=== PATIENT | male | born 1950 | race Caucasian/White ===

== ENCOUNTER 2016-05-16 17:04 | Inpatient (IN) | payer MEDICARE, OTHER ==
[~2016-05-16] VITALS: Ht 170.2 cm; Wt 65.8 kg
[~2016-05-16 17:04] MED LIST: ALBU8.5H4 IH; BUTA1CAP17 PO; DIAZ10TA4 PO; OXYC30TA2 PO; SULF1TAB48 PO; SUMA100T PO; TIZA4TAB4 PO
[2016-05-16] MEDS ORDERED: ALBUTEROL FS 2.5 MG/3 ML VIAL.NEB ONE (17:17)
[2016-05-16] MEDS ORDERED: IPRATROPIUM NEB FS 0.5 MG/2.5 ML AMPUL.NEB ONE (17:17)
[2016-05-16] MEDS ORDERED: Magnesium 1GM/D5W 100ML PREMIX 200 ML IV ONE (17:18)
[2016-05-16] MEDS ORDERED: DEXAMETHASONE SOD PHOSPHATE 10 MG/ML VIAL IV ONE (17:30)
[2016-05-16] MEDS ORDERED: IV NS 0.9% 500 ML IV ONE ×2 (17:30→17:32)
[2016-05-16] MEDS ORDERED: ALBUTEROL FS 2.5 MG/3 ML VIAL.NEB CONTNEB ONE (17:30)
[2016-05-16] MEDS ORDERED: IPRATROPIUM NEB FS 0.5 MG/2.5 ML AMPUL.NEB NEB ONE (17:30)
[2016-05-16] MEDS ORDERED: DEXAMETHASONE SOD PHOSPHATE 10 MG/ML VIAL ONE (17:32)
[2016-05-16] MEDS ORDERED: IV SET PRIMARY 1 EA INFUS.SET MC ONE ×2 (17:32→17:47)
[2016-05-16 17:38] LABS: BASOPHILS % (AUTO) 0.1 % (0.0-2.0); DIFF TOTAL % 100 %; HEMATOCRIT 46 % (39-51); HEMOGLOBIN 15.7 g/dL (13.5-17.5); LYMPHOCYTES # (AUTO) 0.7 /CMM (0.8-4.8); LYMPHOCYTES % (AUTO) 6.6 % (20.0-44.0); MEAN CORPUSCULAR HEMOGLOBIN 31 PG (26.0-33.0); MEAN CORPUSCULAR HGB CONC 34 g/dl (31.0-36.0); MEAN CORPUSCULAR VOLUME 89 fL (80-96); MONOCYTES # (AUTO) 0.7 /CMM (0.1-1.30); MONOCYTES % (AUTO) 6.2 % (2.0-12.0); NEUTROPHILS # (AUTO) 9.6 /CMM (1.8-8.9); NEUTROPHILS % (AUTO) 87.1 % (43.0-81.0); PLATELET COUNT (AUTO) 250 /CMM (150-450); RED BLOOD CELL COUNT(AUTO) 5.16 MIL/uL (4.5-6.0)
[2016-05-16] MEDS ORDERED: Magnesium 1GM/D5W 100ML PREMIX 100 ML IV ONE ×2 (17:48→19:51)
[2016-05-16 17:53] LABS: ANION GAP 13 (5-14); CALCIUM, SERUM 9.6 mg/dL (8.5-10.1); CARBON DIOXIDE 29 mmol/L (21-32); CHLORIDE 97 mmol/L (98-107); CREATININE 1.1 mg/dL (0.6-1.3); GFR 67 mL/min (>60); GLUCOSE 231 mg/dL (74-106); POTASSIUM 4.1 mmol/L (3.5-5.1); SODIUM SERUM 135 mmol/L (136-145); UREA NITROGEN, BLOOD 16 mg/dL (7-18)
[2016-05-16 17:58] LABS: TROPONIN I < 0.017 ng/mL (0.00-0.056)
[2016-05-16 18:06] LABS: ALANINE AMINOTRANSFERASE 59 U/L (12-78); ALBUMIN 4.2 g/dL (3.4-5.0); ASPARTATE AMINOTRANSFERASE 38 U/L (15-37); BILIRUBIN,DIRECT 0.1 mg/dL (0.0-0.2); BILIRUBIN,TOTAL 0.3 mg/dL (0.2-1.0); INDIRECT BILIRUBIN 0.2 mg/dL (0.0-1.1); LACTIC ACID 2.1 mmol/L (0.4-2.0); TOTAL PROTEIN, SERUM 8.1 g/dL (6.4-8.2)
[2016-05-16 18:31] LABS: *LACTIC ACID REFLEX FLAG YES
[2016-05-16 19:29] LABS: KETONES,URINE 1+ (NEGATIVE); LEUKOCYTE ESTERASE ,URINE NEGATIVE (NEGATIVE)
[2016-05-16] MEDS ORDERED: ALBUTEROL FS 2.5 MG/0.5 ML VIAL.NEB ONE (19:48)
[2016-05-16 19:49] LABS: ADD UA MICROSCOPIC YES
[2016-05-16] MEDS ORDERED: IV SET PRIMARY PUMP SET 1 EA INFUS.SET MC ONE (19:50)
[2016-05-16 19:52] LABS: ADD URINE CULTURE NO; RBC,URINE 0-2 /HPF (0-2); WBC,URINE 0-2 /HPF (0-3)
[2016-05-16] MEDS ORDERED: ALBUTEROL FS 2.5 MG/0.5 ML VIAL.NEB NEB ONE ×2 (20:00→22:30)
[2016-05-16] MEDS ORDERED: ALBUTEROL FS 2.5 MG/3 ML VIAL.NEB CONTNEB PRN (22:30)
[2016-05-16] MEDS: ALBUTEROL FS 2.5 MG/0.5 ML VIAL.NEB NEB ONE (22:30)
[2016-05-16] MEDS ORDERED: SUMATRIPTAN SUCCINATE 100 MG TABLET PO PRN (22:30)
[2016-05-16] MEDS ORDERED: IV NS 0.9% 1,000 ML IV PRN (22:36)
[2016-05-16 23:00] VITALS: BP 148/87
[2016-05-16] MEDS ORDERED: MAG HYDROX/AL HYDROX/SIMETH 30 ML UDC PO PRN ×2 (23:00→23:15)
[2016-05-16] MEDS ORDERED: Z GUARD REMEDY 2 OZ OINT TP PRN ×2 (23:00→23:15)
[2016-05-16] MEDS ORDERED: ACETAMINOPHEN 325 MG TABLET PO PRN ×2 (23:00→23:15)
[2016-05-16] MEDS ORDERED: MAGNESIUM HYDROXIDE 30 ML UDC PO PRN ×2 (23:00→23:15)
[2016-05-16] MEDS ORDERED: ONDANSETRON HCL/PF 4 MG/2 ML VIAL IVP PRN ×2 (23:00→23:15)
[2016-05-16] MEDS ORDERED: ZOLPIDEM TARTRATE 5 MG TABLET PO PRN ×2 (23:00→23:15)
[2016-05-16] MEDS ORDERED: HYDROMORPHONE INJ 2 MG/ML DISP.SYRIN IV PRN ×2 (23:00→23:15)
[2016-05-16] MEDS ORDERED: HYDROCODONE/APAP 5/325MG 1 EACH TABLET PO PRN (23:00)
[2016-05-16] MEDS ORDERED: ENOXAPARIN SODIUM 40 MG/0.4 ML DISP.SYRIN SQ SCH ×2 (23:00→23:15)
[2016-05-16] MEDS ORDERED: methylPREDNISolone SOD SUCC 125 MG/2ML VIAL IV SCH (23:00)
[2016-05-16 23:30] VITALS: BP 148/87
[2016-05-16] MEDS ORDERED: ENOXAPARIN SODIUM 40 MG/0.4 ML DISP.SYRIN SQ ONE (23:43)
[2016-05-16] MEDS ORDERED: DIAZEPAM 5 MG TABLET ONE (23:43)
[2016-05-17] MEDS ORDERED: DIAZEPAM 10 MG TABLET PO SCH ×2
[2016-05-17] MEDS ORDERED: IV SET PRIMARY PUMP SET 1 EA INFUS.SET MC ONE (00:29)
[2016-05-17] MEDS ORDERED: IV 1/2NS 1000 ML 1,000 ML IV ONE (00:29)
[2016-05-17] MEDS ORDERED: ALBUTEROL FS 2.5 MG/0.5 ML VIAL.NEB ONE (00:39)
[2016-05-17] MEDS: IV NS 0.9% 1,000 ML IV PRN (00:41)
[2016-05-17] MEDS: ALBUTEROL FS 2.5 MG/0.5 ML VIAL.NEB NEB ONE (00:43)
[2016-05-17] MEDS ORDERED: PANTOPRAZOLE 40 MG TABLET.DR PO SCH (07:30)
[2016-05-17 08:00] VITALS: BP 136/83
[2016-05-17] MEDS ORDERED: TIZANIDINE HCL 4 MG TABLET PO SCH (09:00)
[2016-05-17] MEDS: methylPREDNISolone SOD SUCC 125 MG/2ML VIAL IV SCH ×3 (13:00→21:19)
[2016-05-17] MEDS: TIZANIDINE HCL 4 MG TABLET PO SCH ×2 (13:00→17:00)
[2016-05-17] MEDS: ALBUTEROL FS 2.5 MG/3 ML VIAL.NEB NEB PRN ×3 (14:00→21:38)
[2016-05-17] MEDS: oxyCODONE IR immediate release 5 MG CAPSULE PO PRN ×2 (15:36→21:19)
[2016-05-17] MEDS: PANTOPRAZOLE 40 MG TABLET.DR PO SCH (15:52)
[2016-05-17] MEDS: ACETYLCYSTEINE 10% SOLN 400 MG/4 ML VIAL NEB SCH (16:35)
[2016-05-17 17:50] LABS: BASOPHILS # (AUTO) 0.1 /CMM (0.0-0.2); BASOPHILS % (AUTO) 0.5 % (0.0-2.0); DIFF TOTAL % 100 %; EOSINOPHILS % (AUTO) 0.1 % (0.0-6.0); HEMATOCRIT 46 % (39-51); HEMOGLOBIN 15.3 g/dL (13.5-17.5); LYMPHOCYTES # (AUTO) 0.7 /CMM (0.8-4.8); LYMPHOCYTES % (AUTO) 4.5 % (20.0-44.0); MEAN CORPUSCULAR HEMOGLOBIN 30 PG (26.0-33.0); MEAN CORPUSCULAR HGB CONC 33 g/dl (31.0-36.0); MEAN CORPUSCULAR VOLUME 90 fL (80-96); MONOCYTES # (AUTO) 0.7 /CMM (0.1-1.30); MONOCYTES % (AUTO) 4.3 % (2.0-12.0); NEUTROPHILS # (AUTO) 13.8 /CMM (1.8-8.9); NEUTROPHILS % (AUTO) 90.6 % (43.0-81.0); PLATELET COUNT (AUTO) 225 /CMM (150-450); RED BLOOD CELL COUNT(AUTO) 5.12 MIL/uL (4.5-6.0); WHITE BLOOD COUNT (AUTO) 15.2 K/uL (4.3-11.0)
[2016-05-17 18:10] LABS: CALCIUM, SERUM 9.1 mg/dL (8.5-10.1); CREATININE 0.9 mg/dL (0.6-1.3)
[2016-05-17] MEDS: HYDROCODONE/APAP 5/325MG 1 EACH TABLET PO PRN (18:31)
[2016-05-17] MEDS: ENOXAPARIN SODIUM 40 MG/0.4 ML DISP.SYRIN SQ SCH (21:20)
[2016-05-17 22:00] VITALS: BP 112/79
[2016-05-17] MEDS: DIAZEPAM 10 MG TABLET PO PRN (22:00)
[2016-05-18] MEDS ORDERED: SUMATRIPTAN SUCCINATE 100 MG TABLET ONE (00:02)
[2016-05-18] MEDS: SUMATRIPTAN SUCCINATE 100 MG TABLET PO PRN (00:44)
[2016-05-18] MEDS: oxyCODONE IR immediate release 5 MG CAPSULE PO PRN ×3 (03:53→20:32)
[2016-05-18] MEDS: ALBUTEROL FS 2.5 MG/3 ML VIAL.NEB NEB PRN (04:17)
[2016-05-18] MEDS: DIAZEPAM 10 MG TABLET PO PRN ×3 (04:17→22:32)
[2016-05-18] MEDS: HYDROCODONE/APAP 5/325MG 1 EACH TABLET PO PRN ×4 (06:53→23:38)
[2016-05-18 07:10] LABS: BASOPHILS # (AUTO) 0.1 /CMM (0.0-0.2); BASOPHILS % (AUTO) 1.5 % (0.0-2.0); DIFF TOTAL % 100 %; HEMATOCRIT 44 % (39-51); HEMOGLOBIN 14.8 g/dL (13.5-17.5); LYMPHOCYTES # (AUTO) 0.9 /CMM (0.8-4.8); MEAN CORPUSCULAR HEMOGLOBIN 31 PG (26.0-33.0); MEAN CORPUSCULAR HGB CONC 34 g/dl (31.0-36.0); MEAN CORPUSCULAR VOLUME 91 fL (80-96); MONOCYTES # (AUTO) 1.1 /CMM (0.1-1.30); MONOCYTES % (AUTO) 10.6 % (2.0-12.0); NEUTROPHILS # (AUTO) 8.1 /CMM (1.8-8.9); NEUTROPHILS % (AUTO) 78.9 % (43.0-81.0); PLATELET COUNT (AUTO) 213 /CMM (150-450); RED BLOOD CELL COUNT(AUTO) 4.84 MIL/uL (4.5-6.0); WHITE BLOOD COUNT (AUTO) 10.3 K/uL (4.3-11.0)
[2016-05-18 07:20] LABS: CALCIUM, SERUM 9.3 mg/dL (8.5-10.1); CREATININE 0.7 mg/dL (0.6-1.3); LACTIC ACID 1.7 mmol/L (0.4-2.0); PHOSPHORUS 3.5 mg/dL (2.5-4.9); POTASSIUM 5.2 mmol/L (3.5-5.1)
[2016-05-18 07:49] LABS: ERYTHROCYTE SEDIMENTATION RATE 11 MM/HR (0-20)
[2016-05-18] MEDS: ACETYLCYSTEINE 10% SOLN 400 MG/4 ML VIAL NEB SCH ×2 (07:53→19:42)
[2016-05-18 08:42] VITALS: BP 123/77
[2016-05-18] MEDS: TIZANIDINE HCL 4 MG TABLET PO SCH ×3 (09:29→16:14)
[2016-05-18] MEDS: methylPREDNISolone SOD SUCC 125 MG/2ML VIAL IV SCH ×4 (09:29→20:45)
[2016-05-18] MEDS: PANTOPRAZOLE 40 MG TABLET.DR PO SCH (09:30)
[2016-05-18] MEDS: GUAIFENESIN LA 600 MG TABLET.SA PO SCH ×2 (16:14→20:45)
[2016-05-18] MEDS: IV NS 0.9% 1,000 ML IV PRN (16:15)
[2016-05-18 17:22] VITALS: BP 125/91
[2016-05-18 20:00] VITALS: BP 112/77
[2016-05-18] MEDS: ENOXAPARIN SODIUM 40 MG/0.4 ML DISP.SYRIN SQ SCH (20:38)
[2016-05-19] MEDS: oxyCODONE IR immediate release 5 MG CAPSULE PO PRN ×4 (02:50→21:07)
[2016-05-19] MEDS: IV NS 0.9% 1,000 ML IV PRN ×2 (05:16→17:22)
[2016-05-19] MEDS: HYDROCODONE/APAP 5/325MG 1 EACH TABLET PO PRN ×3 (05:28→17:23)
[2016-05-19] MEDS: ALBUTEROL FS 2.5 MG/3 ML VIAL.NEB NEB SCH ×5 (07:35→23:07)
[2016-05-19 08:00] VITALS: BP 104/71
[2016-05-19] MEDS: methylPREDNISolone SOD SUCC 125 MG/2ML VIAL IV SCH ×3 (08:03→17:23)
[2016-05-19] MEDS: TIZANIDINE HCL 4 MG TABLET PO SCH ×3 (08:04→17:23)
[2016-05-19] MEDS: PANTOPRAZOLE 40 MG TABLET.DR PO SCH (08:04)
[2016-05-19] MEDS: GUAIFENESIN LA 600 MG TABLET.SA PO SCH ×2 (08:04→21:05)
[2016-05-19] MEDS: ACETYLCYSTEINE 10% SOLN 400 MG/4 ML VIAL NEB SCH ×2 (09:00→19:57)
[2016-05-19] MEDS: DIAZEPAM 10 MG TABLET PO PRN ×3 (09:08→21:34)
[2016-05-19 16:00] VITALS: BP 104/71
[2016-05-19] MEDS: DOCUSATE SODIUM 250 MG CAPSULE PO SCH (17:23)
[2016-05-19 20:00] VITALS: BP 128/55
[2016-05-19] MEDS: ENOXAPARIN SODIUM 40 MG/0.4 ML DISP.SYRIN SQ SCH (21:06)
[2016-05-20] MEDS: HYDROCODONE/APAP 5/325MG 1 EACH TABLET PO PRN ×3 (00:48→19:30)
[2016-05-20] MEDS: ALBUTEROL FS 2.5 MG/3 ML VIAL.NEB NEB SCH ×6 (02:55→23:25)
[2016-05-20] MEDS: oxyCODONE IR immediate release 5 MG CAPSULE PO PRN ×4 (03:08→21:39)
[2016-05-20] MEDS: DIAZEPAM 10 MG TABLET PO PRN ×4 (03:34→22:55)
[2016-05-20] MEDS ORDERED: BUTALBITAL/ASPIRIN/CAFFEINE 1 CAP CAPSULE PO ONE (05:28)
[2016-05-20] MEDS ORDERED: BUTALBITAL/ASPIRIN/CAFFEINE 1 CAP CAPSULE PO PRN (05:30)
[2016-05-20] MEDS: IV NS 0.9% 1,000 ML IV PRN ×2 (05:59→23:30)
[2016-05-20] MEDS: ACETYLCYSTEINE 10% SOLN 400 MG/4 ML VIAL NEB SCH ×2 (07:45→19:26)
[2016-05-20 08:00] VITALS: BP 107/71
[2016-05-20] MEDS: SENNOSIDES/DOCUSATE SODIUM 1 TAB TABLET PO SCH (08:16)
[2016-05-20] MEDS: PANTOPRAZOLE 40 MG TABLET.DR PO SCH (08:16)
[2016-05-20] MEDS: GUAIFENESIN LA 600 MG TABLET.SA PO SCH ×2 (08:16→21:39)
[2016-05-20] MEDS: DOCUSATE SODIUM 250 MG CAPSULE PO SCH ×2 (08:16→17:47)
[2016-05-20] MEDS: methylPREDNISolone SOD SUCC 125 MG/2ML VIAL IV SCH ×3 (08:16→17:47)
[2016-05-20] MEDS: TIZANIDINE HCL 4 MG TABLET PO SCH ×3 (08:17→17:00)
[2016-05-20 09:55] LABS: CALCIUM, SERUM 8.9 mg/dL (8.5-10.1); CREATININE 0.8 mg/dL (0.6-1.3); POTASSIUM 3.2 mmol/L (3.5-5.1)
[2016-05-20 11:05] LABS: ABG BASE EXCESS 2.4 mmol/L; ABG PCO2 37.1 mmHg (35.0-45.0); ABG PH 7.464 (7.350-7.450); ABG PO2 64.4 mmHg (75.0-100.0); ABG TOTAL HEMOGLOBIN 14.3 G/dL (13.5-18.0); ALLEN TEST Pass; AaDO2 40.9 mmHg; O2Hb 92.6 % (94.0-97.0)
[2016-05-20] MEDS ORDERED: POTASSIUM CHLORIDE 20 MEQ TAB.PRT.SR PO ONE (13:00)
[2016-05-20 16:00] VITALS: BP 115/72
[2016-05-20 20:00] VITALS: BP 124/82
[2016-05-20] MEDS: ENOXAPARIN SODIUM 40 MG/0.4 ML DISP.SYRIN SQ SCH (21:46)
[2016-05-20] MEDS ORDERED: SUMATRIPTAN SUCCINATE 100 MG TABLET ONE (23:10)
[2016-05-20] MEDS: SUMATRIPTAN SUCCINATE 100 MG TABLET PO PRN (23:18)
[2016-05-21] MEDS: HYDROCODONE/APAP 5/325MG 1 EACH TABLET PO PRN ×3 (00:32→20:24)
[2016-05-21] MEDS: ALBUTEROL FS 2.5 MG/3 ML VIAL.NEB NEB SCH ×6 (03:22→23:33)
[2016-05-21] MEDS: oxyCODONE IR immediate release 5 MG CAPSULE PO PRN ×4 (03:31→23:58)
[2016-05-21] MEDS ORDERED: BUTALBITAL/ASPIRIN/CAFFEINE 1 CAP CAPSULE PO ONE (05:33)
[2016-05-21] MEDS: DIAZEPAM 10 MG TABLET PO PRN ×3 (05:52→20:24)
[2016-05-21 07:12] LABS: CALCIUM, SERUM 8.5 mg/dL (8.5-10.1); CREATININE 0.7 mg/dL (0.6-1.3); POTASSIUM 3.7 mmol/L (3.5-5.1)
[2016-05-21] MEDS: ACETYLCYSTEINE 10% SOLN 400 MG/4 ML VIAL NEB SCH ×2 (07:35→19:30)
[2016-05-21 08:00] VITALS: BP 138/53
[2016-05-21] MEDS: PANTOPRAZOLE 40 MG TABLET.DR PO SCH (08:39)
[2016-05-21] MEDS: GUAIFENESIN LA 600 MG TABLET.SA PO SCH ×2 (08:39→20:24)
[2016-05-21] MEDS: methylPREDNISolone SOD SUCC 125 MG/2ML VIAL IV SCH (08:39)
[2016-05-21] MEDS: DOCUSATE SODIUM 250 MG CAPSULE PO SCH ×2 (08:39→17:01)
[2016-05-21] MEDS: SENNOSIDES/DOCUSATE SODIUM 1 TAB TABLET PO SCH (08:39)
[2016-05-21] MEDS: TIZANIDINE HCL 4 MG TABLET PO SCH ×3 (08:40→17:00)
[2016-05-21 09:00] VITALS: BP 138/83
[2016-05-21] MEDS: BUTALB/APAP/CAFFEINE 1 EACH TABLET PO PRN (11:48)
[2016-05-21] MEDS ORDERED: IV SET PRIMARY PUMP SET 1 EA INFUS.SET MC ONE (13:58)
[2016-05-21] MEDS: IV NS 0.9% 1,000 ML IV PRN (14:05)
[2016-05-21 16:00] VITALS: BP 104/73
[2016-05-21] MEDS ORDERED: methylPREDNISolone SOD SUCC 125 MG/2ML VIAL IV SCH (17:00)
[2016-05-21 20:00] VITALS: BP 122/77
[2016-05-21] MEDS: ENOXAPARIN SODIUM 40 MG/0.4 ML DISP.SYRIN SQ SCH (20:29)
[2016-05-22] MEDS: BUTALB/APAP/CAFFEINE 1 EACH TABLET PO PRN ×2 (01:05→11:47)
[2016-05-22] MEDS: DIAZEPAM 10 MG TABLET PO PRN ×3 (02:27→14:20)
[2016-05-22] MEDS: ALBUTEROL FS 2.5 MG/3 ML VIAL.NEB NEB SCH ×4 (03:44→14:56)
[2016-05-22] MEDS: HYDROCODONE/APAP 5/325MG 1 EACH TABLET PO PRN ×2 (04:43→16:08)
[2016-05-22] MEDS: IV NS 0.9% 1,000 ML IV PRN (05:03)
[2016-05-22] MEDS: oxyCODONE IR immediate release 5 MG CAPSULE PO PRN ×2 (06:05→12:32)
[2016-05-22] MEDS: ACETYLCYSTEINE 10% SOLN 400 MG/4 ML VIAL NEB SCH (07:10)
[2016-05-22 08:00] VITALS: BP 122/72
[2016-05-22] MEDS: SENNOSIDES/DOCUSATE SODIUM 1 TAB TABLET PO SCH (08:30)
[2016-05-22] MEDS: methylPREDNISolone SOD SUCC 125 MG/2ML VIAL IV SCH ×2 (08:30→16:09)
[2016-05-22] MEDS: GUAIFENESIN LA 600 MG TABLET.SA PO SCH (08:30)
[2016-05-22] MEDS: DOCUSATE SODIUM 250 MG CAPSULE PO SCH ×2 (08:30→16:08)
[2016-05-22] MEDS: PANTOPRAZOLE 40 MG TABLET.DR PO SCH (08:30)
[2016-05-22] MEDS: TIZANIDINE HCL 4 MG TABLET PO SCH ×3 (09:00→16:08)
[2016-05-22] MEDS ORDERED: ALBUT2 NEB (11:30)
[2016-05-22] MEDS ORDERED: GUAI600T PO (11:30)
[2016-05-22] MEDS ORDERED: SENN1TAB6 PO (11:30)
[2016-05-22] MEDS ORDERED: FLUT1DIS3 INH (11:31)
[2016-05-22] MEDS ORDERED: PRED20TA PO (11:43)
[2016-05-22 14:16] LABS: ABG BASE EXCESS 3.7 mmol/L; ABG HCO3 27.9 mmol/L; ABG PCO2 40.6 mmHg (35.0-45.0); ABG PH 7.455 (7.350-7.450); ABG PO2 85.2 mmHg (75.0-100.0); ABG TOTAL HEMOGLOBIN 14.8 G/dL (13.5-18.0); ALLEN TEST Pass; AaDO2 15.9 mmHg
[2016-05-22 16:00] VITALS: BP 120/74
== END 2016-05-22 16:46 | DRG 189 ==
LOC: ER 17:06 → MED 23:03
PROVIDERS: ADMIT Internal Medicine; ATTEND Internal Medicine
DX: J96.01 Acute respiratory failure with hypoxia (principal); J44.1 Chronic obstructive pulmonary disease with (acute) exacerbation; E87.1 Hypo-osmolality and hyponatremia; E87.2 Acidosis; F11.20 Opioid dependence, uncomplicated; E87.5 Hyperkalemia; G89.4 Chronic pain syndrome; V89.2XXS Person injured in unspecified motor-vehicle accident, traffic, sequela; Z87.891 Personal history of nicotine dependence; J40 Bronchitis, not specified as acute or chronic; R73.9 Hyperglycemia, unspecified
CPT/HCPCS: 31720; 36415; 36600; 71010-TC; 80048-TC; 80076-TC; 81000-TC; 82803-TC; 83605-TC; 83735-TC; 83880; 84100-TC; 84484-TC; 85025-TC; 85652-TC; 87040-TC; 87081-TC; 94799-TC; A4606; J1100; J1650; J2405; J2930; J3475; J3490; J7030; J7040; Z7610

== ENCOUNTER 2018-05-31 14:15 | Emergency (ER) | payer MEDICARE, OTHER ==
[~2018-05-31] VITALS: Ht 177.8 cm; Wt 56.7 kg
[~2018-05-31 14:15] MED LIST changes: +ALBUT2 NEB; +FLUT1DIS3 INH; +GUAI600T53 PO; +PRED20TA PO; +SENN1TAB6 PO; -SULF1TAB48 PO
--- NOTE | 2018-05-31 14:42 | NUR ---
CALLED . Jose Powell @[phone]. WAS PAGED.
[2018-05-31] MEDS ORDERED: HYDROCODONE/APAP 5/325MG 1 EACH TABLET ONE (14:46)
--- NOTE | 2018-05-31 14:56 | NUR ---
PT [id number], CAME FROM CLINIC C/O INTRACTABLE BACK PAIN. PT AAOX3, VSS. DENIES CP, SOB, DIZZINESS, N/V @ THIS TIME. PT SEEN & EVAL'D BY DR. ALCARAZ. MEDICATED FOR PAIN, PT BRII WELL. WILL CONT TO MONITOR.
[2018-05-31] MEDS ORDERED: HYDROCODONE/APAP 5/325MG 1 EACH TABLET PO ONE (15:00)
--- NOTE | 2018-05-31 15:05 | NUR ---
SECOND TIME... CALLED Dr. Jose Powell @[phone]. WAS PAGED. TODAY HE IS IN [facility] OFFICE NUMBER IS: [phone]
[2018-05-31 15:36] VITALS: BP 124/82
--- NOTE | 2018-05-31 15:43 | NUR ---
PT IS REC'ING A TAP CARD TO TAKE THE BUS HOME AND A REFERRAL TO DR. GARCIA, UROLOGY.
== END 2018-05-31 15:47 | disposition home or self-care (01) ==
LOC: ER 14:18
DX: G89.29 Other chronic pain (principal); F03.90 Unspecified dementia, unspecified severity, without behavioral disturbance, psychotic disturbance, mood disturbance, and anxiety; J45.909 Unspecified asthma, uncomplicated; Z98.890 Other specified postprocedural states; Z88.8 Allergy status to other drugs, medicaments and biological substances; Z88.6 Allergy status to analgesic agent; Z88.1 Allergy status to other antibiotic agents; Z79.899 Other long term (current) drug therapy
CPT/HCPCS: 99283; A4606

== ENCOUNTER 2018-06-03 22:48 | Emergency (ER) | payer MEDICARE, OTHER ==
[~2018-06-03] VITALS: Ht 177.8 cm; Wt 52.2 kg
[2018-06-03 22:58] VITALS: BP 112/70
[2018-06-03] MEDS ORDERED: oxyCODONE/APAP (5/325 MG) 1 UDTAB TABLET ONE (23:24)
[2018-06-03] MEDS ORDERED: oxyCODONE/APAP (5/325 MG) 1 UDTAB TABLET PO ONE (23:30)
--- NOTE | 2018-06-03 23:51 | NUR ---
Patient discharged to home in stable condition. Written and verbal after care instructions given. Patient verbalizes understanding of instruction. Pt ambulatory with steady gait. Instructed not to drive.
== END 2018-06-03 23:54 | disposition home or self-care (01) ==
LOC: ER 22:50
DX: G89.29 Other chronic pain (principal); F03.90 Unspecified dementia, unspecified severity, without behavioral disturbance, psychotic disturbance, mood disturbance, and anxiety; J45.909 Unspecified asthma, uncomplicated; Z85.46 Personal history of malignant neoplasm of prostate; Z98.890 Other specified postprocedural states; Z88.6 Allergy status to analgesic agent; Z88.1 Allergy status to other antibiotic agents; Z88.5 Allergy status to narcotic agent; Z60.2 Problems related to living alone
CPT/HCPCS: 99282; A4606